=== PATIENT | female | born 1940 | race Hispanic/Latino ===

== ENCOUNTER 2017-10-05 15:24 | Emergency (ER) | payer OTHER, MEDICARE ==
[~2017-10-05 15:24] MED LIST: ATOR40TA71 PO; BUSP15 PO; CALC1TAB2 PO; CLOP75TA14 PO; DULO60CA63 PO; ERGO400C PO; FERR325T29 PO; FLUT1AER IH; FURO-151 PO; INSU100C14; INSU100I15 SQ; INSU100V12 SQ; IPRA3AMP4 IH; LOSA25TA21 PO; MIRA50TA PO; POTA-81 PO; PRAM1TAB3 PO; PRED10TA3 PO; SULF1TAB42 PO; nebulizer tubing
[2017-10-05 16:25] LABS: BASOPHILS % (AUTO) 0.5 % (0.0-5.0); EOSINOPHILS % (AUTO) 1.9 % (0.0-8.0); LYMPHOCYTES % (AUTO) 26.1 % (21.0-51.0); MEAN CORPUSCULAR HEMOGLOBIN 29.7 pg (27.0-33.0); MEAN CORPUSCULAR HGB CONC 33.6 g/dL (32.0-36.0); MEAN CORPUSCULAR VOLUME 88.4 fL (79-99); MONOCYTES % (AUTO) 6.9 % (3.0-13.0); NEUTROPHILS % (AUTO) 64.6 % (40.0-77.0); PLATELET COUNT (AUTO) 215 K/uL (130-400); RED BLOOD CELL COUNT(AUTO) 4.52 MIL/uL (4.00-5.50); RED CELL DISTRIBUTION WIDTH 13.4 % (11.0-15.5); WHITE BLOOD COUNT (AUTO) 5.8 K/uL (4.8-10.8)
[2017-10-05 18:27] LABS: APPEARANCE,URINE Clear (CLEAR); BILIRUBIN,URINE Negative (NEGATIVE); COLOR,URINE Yellow (YELLOW); GLUCOSE, URINE (UA) Negative (NEGATIVE); KETONES,URINE Negative (NEGATIVE); LEUKOCYTE ESTERASE ,URINE Negative (NEGATIVE); NITRATE,URINE Negative (NEGATIVE); OCCULT BLOOD,URINE Negative (NEGATIVE); PROTEIN,URINE POS 1+ (NEGATIVE); UROBILINOGEN,URINE 0.2 mg/dL (0.2-1.0)
[2017-10-05 18:39] LABS: BACTERIA,URINE None Seen /HPF (None Seen); MUCUS,URINE Few LPF (None Seen); RBC,URINE None Seen /HPF (0-1); SQUAMOUS EPITHELIAL CELL,UR 0-2 /LPF (0-2); WBC,URINE None Seen /HPF (0-1)
[2017-10-05] MEDS ORDERED: SODIUM CHLORIDE 0.9% 1000ML 1,000 ML IV ONE (18:41)
[2017-10-05] MEDS ORDERED: MECLIZINE HCL 25 MG TABLET ONE (20:53)
== END 2017-10-05 20:58 | disposition home or self-care (01) ==
LOC: EDH 15:24
DX: R42 Dizziness and giddiness (principal); I10 Essential (primary) hypertension; K21.9 Gastro-esophageal reflux disease without esophagitis; G89.29 Other chronic pain; M54.9 Dorsalgia, unspecified; J44.9 Chronic obstructive pulmonary disease, unspecified; Z86.73 Personal history of transient ischemic attack (TIA), and cerebral infarction without residual deficits; Z90.49 Acquired absence of other specified parts of digestive tract; Z87.891 Personal history of nicotine dependence; Z91.018 Allergy to other foods
CPT/HCPCS: 36415; 70250; 70551; 71045; 80048; 81001; 84484; 85025; 93005; 96360; 99285; J7030

== ENCOUNTER 2017-10-31 12:22 | Emergency (ER) | payer OTHER, MEDICARE ==
[~2017-10-31] VITALS: Ht 162.6 cm; Wt 99.8 kg
[2017-10-31 13:28] LABS: BASOPHILS % (AUTO) 0.3 % (0.0-5.0); EOSINOPHILS % (AUTO) 2.7 % (0.0-8.0); HEMATOCRIT 44.2 % (36-48); LYMPHOCYTES % (AUTO) 27.8 % (21.0-51.0); MEAN CORPUSCULAR HEMOGLOBIN 29.6 pg (27.0-33.0); MEAN CORPUSCULAR HGB CONC 33.4 g/dL (32.0-36.0); MEAN CORPUSCULAR VOLUME 88.6 fL (79-99); MONOCYTES % (AUTO) 4.9 % (3.0-13.0); NEUTROPHILS % (AUTO) 64.3 % (40.0-77.0); NUCLEATED RED BLOOD CELLS 0.1 % (0.0-0.19); PLATELET COUNT (AUTO) 202 K/uL (130-400); RED BLOOD CELL COUNT(AUTO) 4.99 MIL/uL (4.00-5.50); RED CELL DISTRIBUTION WIDTH 13.6 % (11.0-15.5)
[2017-10-31] MEDS ORDERED: ONDANSETRON HCL 4 MG/2 ML VIAL ONE (13:34)
[2017-10-31 13:36] LABS: APPEARANCE,URINE Clear (CLEAR); BILIRUBIN,URINE Negative (NEGATIVE); COLOR,URINE Yellow (YELLOW); GLUCOSE, URINE (UA) Negative (NEGATIVE); KETONES,URINE Negative (NEGATIVE); LEUKOCYTE ESTERASE ,URINE Negative (NEGATIVE); NITRATE,URINE Negative (NEGATIVE); OCCULT BLOOD,URINE Negative (NEGATIVE); PH,URINE 5.5 (5.0-8.0); PROTEIN,URINE POS 1+ (NEGATIVE); UROBILINOGEN,URINE 0.2 mg/dL (0.2-1.0)
[2017-10-31 13:38] LABS: BACTERIA,URINE Rare /HPF (None Seen); CREATININE 0.9 mg/dL (0.5-1.5); POTASSIUM 3.9 mmol/L (3.5-5.1); RBC,URINE 0-1 /HPF (0-1); SQUAMOUS EPITHELIAL CELL,UR Rare /LPF (0-2); WBC,URINE 0-1 /HPF (0-1)
[2017-10-31 13:41] LABS: INR 0.95 (0.85-1.15); PARTIAL THROMBOPLASTIN TIME 26.4 SEC (26.3-35.5)
[2017-10-31 13:43] LABS: ALBUMIN 3.6 g/dL (3.5-5.0); BILIRUBIN,TOTAL 0.5 mg/dL (0.2-1.0); TOTAL PROTEIN, SERUM 7.8 g/dL (6.0-8.3)
[2017-10-31] MEDS ORDERED: HYDROCODONE/ACETAMINOPHEN 7.5/325 MG 15 ML UDCUP PO SCH (16:00)
[2017-10-31] MEDS ORDERED: HYDROCODONE/ACETAMINOPHEN 7.5/325 MG 15 ML UDCUP ONE (16:44)
== END 2017-10-31 18:34 | disposition home or self-care (01) ==
LOC: EDH 12:22
DX: G89.29 Other chronic pain (principal); M54.9 Dorsalgia, unspecified; R51 Headache; I10 Essential (primary) hypertension; J44.9 Chronic obstructive pulmonary disease, unspecified; K21.9 Gastro-esophageal reflux disease without esophagitis; Z86.73 Personal history of transient ischemic attack (TIA), and cerebral infarction without residual deficits; Z91.018 Allergy to other foods
CPT/HCPCS: 36415; 70450; 70551; 71045; 80053; 81001; 84484; 85025; 85610; 85730; 87804 ×2; 93005; 94761; 96374; 99285; J2405

== ENCOUNTER → 2017-11-20 | Outpatient (CLI) | payer OTHER, MEDICARE | END | disposition home or self-care (01) | LOC: SHCH 09:54 | PROVIDERS: ATTEND Internal Medicine Cardiovascular Disease | DX: G45.9 Transient cerebral ischemic attack, unspecified (principal) | CPT/HCPCS: 93880 ==

== ENCOUNTER → 2018-10-07 | Outpatient (CLI) | payer OTHER, MEDICARE ==
[~2018-10-07] MED LIST changes: +IPRA3AMP24 IH; -IPRA3AMP4 IH; -LOSA25TA21 PO; +LOSA25TA41 PO
== END | disposition home or self-care (01) ==
LOC: RAH 09:05
PROVIDERS: ATTEND Internal Medicine
DX: M47.816 Spondylosis without myelopathy or radiculopathy, lumbar region (principal); J30.9 Allergic rhinitis, unspecified; M85.88 Other specified disorders of bone density and structure, other site; Z90.49 Acquired absence of other specified parts of digestive tract
CPT/HCPCS: 72100

== ENCOUNTER 2018-12-17 12:16 | Emergency (ER) | payer OTHER, MEDICARE ==
[2018-12-17 12:43] LABS: BASOPHILS % (AUTO) 0.6 % (0.0-5.0); EOSINOPHILS % (AUTO) 1.3 % (0.0-8.0); HEMATOCRIT 43.6 % (36-48); LYMPHOCYTES % (AUTO) 26.2 % (21.0-51.0); MEAN CORPUSCULAR HEMOGLOBIN 30.1 pg (27.0-33.0); MEAN CORPUSCULAR HGB CONC 33.7 g/dL (32.0-36.0); MEAN CORPUSCULAR VOLUME 89.1 fL (79-99); MONOCYTES % (AUTO) 7.1 % (3.0-13.0); NEUTROPHILS % (AUTO) 64.8 % (40.0-77.0); NUCLEATED RED BLOOD CELLS 0.1 % (0.0-0.19); PLATELET COUNT (AUTO) 206 K/uL (130-400); RED CELL DISTRIBUTION WIDTH 13.5 % (11.0-15.5); WHITE BLOOD COUNT (AUTO) 6.3 K/uL (4.8-10.8)
[2018-12-17 12:52] LABS: POTASSIUM 4.8 mmol/L (3.5-5.1)
[2018-12-17 12:57] LABS: ALBUMIN 3.8 g/dL (3.5-5.0); BILIRUBIN,TOTAL 0.3 mg/dL (0.2-1.0); TOTAL PROTEIN, SERUM 7.5 g/dL (6.0-8.3)
[2018-12-17] MEDS ORDERED: IPRATROPIUM/ALBUTEROL SULFATE 3 ML SOLUTION IH ONE (13:02)
== END 2018-12-17 13:26 | disposition home or self-care (01) ==
LOC: EDH 12:16
DX: F41.1 Generalized anxiety disorder (principal); J44.1 Chronic obstructive pulmonary disease with (acute) exacerbation; K21.9 Gastro-esophageal reflux disease without esophagitis; R07.89 Other chest pain; I10 Essential (primary) hypertension; E78.5 Hyperlipidemia, unspecified; Z90.49 Acquired absence of other specified parts of digestive tract; Z86.73 Personal history of transient ischemic attack (TIA), and cerebral infarction without residual deficits; Z90.710 Acquired absence of both cervix and uterus; Z87.891 Personal history of nicotine dependence; Z88.8 Allergy status to other drugs, medicaments and biological substances; Z91.018 Allergy to other foods; Z79.899 Other long term (current) drug therapy
CPT/HCPCS: 36415; 80053; 84484; 85025; 93005; 94640

== ENCOUNTER → 2019-03-16 | Outpatient (CLI) | payer OTHER, MEDICARE | END | disposition home or self-care (01) | LOC: RAH 12:37 | PROVIDERS: ATTEND Internal Medicine | DX: R06.00 Dyspnea, unspecified (principal); R05 Cough | CPT/HCPCS: 71046 ==

== ENCOUNTER → 2019-05-14 | Outpatient (CLI) | payer OTHER, MEDICARE ==
[~2019-05-14] MED LIST changes: -DULO60CA63 PO; +DULO60CA64 PO
== END | disposition home or self-care (01) ==
LOC: RAH 14:47
PROVIDERS: ATTEND Internal Medicine
DX: I82.812 Embolism and thrombosis of superficial veins of left lower extremity (principal)
CPT/HCPCS: 93971

== ENCOUNTER 2019-06-29 13:40 | Observation (INO) | payer OTHER, MEDICARE ==
[~2019-06-29] VITALS: Ht 165.1 cm; Wt 102.1 kg
[2019-06-29 15:26] LABS: EOSINOPHILS % (AUTO) 1.3 % (0.0-8.0); HEMATOCRIT 43.6 % (36-48); LYMPHOCYTES % (AUTO) 23.6 % (21.0-51.0); MEAN CORPUSCULAR HEMOGLOBIN 30.6 pg (27.0-33.0); MEAN CORPUSCULAR HGB CONC 33.8 g/dL (32.0-36.0); MEAN CORPUSCULAR VOLUME 90.7 fL (79-99); MONOCYTES % (AUTO) 6.4 % (3.0-13.0); NEUTROPHILS % (AUTO) 67.7 % (40.0-77.0); PLATELET COUNT (AUTO) 192 K/uL (130-400); RED BLOOD CELL COUNT(AUTO) 4.81 MIL/uL (4.00-5.50); RED CELL DISTRIBUTION WIDTH 13.4 % (11.0-15.5)
[2019-06-29 15:34] LABS: CREATININE 1.3 mg/dL (0.5-1.5)
[2019-06-29 15:35] LABS: INR 0.95 (0.85-1.15); PARTIAL THROMBOPLASTIN TIME 24.9 SEC (26.3-35.5)
[2019-06-29 15:39] LABS: ALBUMIN 3.4 g/dL (3.5-5.0); BILIRUBIN,TOTAL 0.4 mg/dL (0.2-1.0)
[2019-06-29] MEDS ORDERED: SODIUM CHLORIDE 0.9% 1000ML 1,000 ML IV ONE (18:17)
[2019-06-29 18:19] LABS: APPEARANCE,URINE Cloudy (CLEAR); BILIRUBIN,URINE Negative (NEGATIVE); COLOR,URINE Dark Yellow (YELLOW); GLUCOSE, URINE (UA) Negative (NEGATIVE); KETONES,URINE Trace mg/dL (NEGATIVE); LEUKOCYTE ESTERASE ,URINE Moderate (NEGATIVE); NITRATE,URINE Negative (NEGATIVE); OCCULT BLOOD,URINE Negative (NEGATIVE); PROTEIN,URINE POS 2+ mg/dL (NEGATIVE); UROBILINOGEN,URINE 0.2 mg/dL (0.2-1.0)
[2019-06-29 18:37] LABS: BACTERIA,URINE Moderate /HPF (None Seen); MUCUS,URINE Few LPF (None Seen)
[2019-06-29] MEDS ORDERED: GLUCAGON 1MG KIT 1 MG ML IM PRN ×2 (20:00→22:30)
[2019-06-29] MEDS ORDERED: SODIUM CHLORIDE 0.9% 1000ML 1,000 ML IV SCH (20:00)
[2019-06-29] MEDS ORDERED: DEXTROSE 50%-WATER 50 ML DISP.SYRIN IV PRN ×2 (20:00→22:30)
[2019-06-29] MEDS ORDERED: LEVOFLOXACIN 500 MG/D5W 100 ML 100 ML ONE (20:26)
[2019-06-29 22:06] LABS: OCCULT BLOOD STOOL SINGLE ONLY POSITIVE (NEGATIVE)
[2019-06-29] MEDS ORDERED: MAG HYDROX/AL HYDROX/SIMETH ES 30 ML SUSP UDCUP PO PRN (22:30)
[2019-06-29] MEDS ORDERED: DIPHENHYDRAMINE HCL 25 MG CAPSULE PO PRN (22:30)
[2019-06-29] MEDS ORDERED: POTASSIUM CHLORIDE 20 MEQ ERTAB PO PRN (22:30)
[2019-06-29] MEDS ORDERED: ACETAMINOPHEN 325 MG TAB PO PRN ×2 (22:30)
[2019-06-29] MEDS ORDERED: ONDANSETRON HCL 4 MG/2 ML VIAL IV PRN (22:30)
[2019-06-29] MEDS ORDERED: POTASSIUM CHLORIDE 10% ELIXIR 20 MEQ/15 ML UDCUP PO PRN (22:30)
[2019-06-29] MEDS ORDERED: POTASSIUM CHLORIDE 20MEQ/100ML 100 ML IV PRN (22:30)
[2019-06-29] MEDS ORDERED: DiphenhydrAMINE HCL 50 MG/ML VIAL IV PRN (22:30)
[2019-06-29] MEDS ORDERED: LIDOCAINE HCL-MPF 1% 2ML VIAL IV PRN (22:30)
[2019-06-29] MEDS ORDERED: ALBUTEROL SULFATE 0.083% 2.5 MG/3 ML INH IH PRN (22:30)
[2019-06-30] MEDS ORDERED: DiphenhydrAMINE HCL 50 MG/ML VIAL ONE (01:18)
[2019-06-30] MEDS ORDERED: DIPHENHYDRAMINE HCL 25 MG CAPSULE ONE (01:20)
[2019-06-30] MEDS ORDERED: INSU100V12 SQ (08:38)
[2019-06-30] MEDS ORDERED: ATOR-2 PO (08:38)
[2019-06-30] MEDS ORDERED: DULO60CA64 PO (08:38)
[2019-06-30] MEDS ORDERED: BUSP15 PO (08:38)
[2019-06-30] MEDS ORDERED: IPRA0.2S54 IH (08:44)
[2019-06-30] MEDS ORDERED: COLE5PAC3 PO ×2 (08:44→08:48)
[2019-06-30] MEDS ORDERED: AEC81 PO (08:44)
[2019-06-30] MEDS ORDERED: PANT40TA25 PO (08:44)
[2019-06-30] MEDS ORDERED: METO50TA18 PO (08:44)
[2019-06-30] MEDS ORDERED: ACET1TAB12 PO (08:44)
[2019-06-30] MEDS ORDERED: FLUT1BLS3 IH (08:44)
[2019-06-30] MEDS ORDERED: ALBU2.5V2 IH (08:44)
[2019-06-30] MEDS ORDERED: ALBU8.5H8 IH (08:44)
[2019-06-30] MEDS ORDERED: CRAN500T2 PO (08:48)
[2019-06-30] MEDS ORDERED: CPAP NASAL (08:48)
[2019-06-30] MEDS ORDERED: LEVO500T2 PO (08:52)
[2019-06-30] MEDS ORDERED: PRED10TA23 PO (08:53)
[2019-06-30] MEDS ORDERED: CLOPIDOGREL BISULFATE 75 MG TAB PO SCH (09:00)
[2019-06-30] MEDS ORDERED: LOPERAMIDE HCL 2 MG CAP PO PRN (09:00)
[2019-06-30] MEDS: FAMOTIDINE 20MG TAB 20 MG TAB PO SCH ×2 (09:00→21:01)
[2019-06-30] MEDS ORDERED: METHYLPREDNISOLONE SOD SUCC 125MG/2ML VIAL IM SCH (09:00)
[2019-06-30] MEDS ORDERED: ENOXAPARIN SODIUM 30 MG/0.3 ML SQ SCH (09:00)
[2019-06-30] MEDS ORDERED: FLUTICASONE/VILANTEROL 1 EACH AER.POW.BA IH SCH (09:00)
[2019-06-30] MEDS ORDERED: INSULIN GLARGINE 100 UNITS/ML 10 ML VIAL SQ ONE (09:00)
[2019-06-30] MEDS ORDERED: FERROUS SULFATE 325 MG TABLET.DR PO SCH (09:00)
[2019-06-30] MEDS ORDERED: POTASSIUM CHLORIDE 20 MEQ ERTAB PO SCH (09:00)
[2019-06-30] MEDS ORDERED: ALBUTEROL SULFATE 0.083% 2.5 MG/3 ML INH IH SCH (10:00)
[2019-06-30] MEDS ORDERED: ALBUTEROL SULFATE 0.083% 2.5 MG/3 ML INH IH ONE (10:42)
--- NOTE | 2019-06-30 10:50 | NUR ---
DCP: HOME Sw met with pt who states her son Sarbjit Mancilla [phone] lives with her and assists as needed. Pt is independent of ADLs, has walker, w/c,nebulizer, O2 thru [employer], shower chair and hospital bed, no in home care services. Manjeet Garcia is PCP and pt uses [facility]. Plan is home at me Addendum: 06/30/19 at 1053 by JEAN-PIERRE DODD SS Amended: Links added.
[2019-06-30 11:05] VITALS: BP 154/67
--- NOTE | 2019-06-30 12:00 | NUR ---
ADMISSION PER SERVICES OF FROM ER. PT ON 2 LITER NC . REVIEW ORDERS AND ADMISSION CARE. CALL LIGHT IN REACH. .
[2019-06-30 16:00] VITALS: BP 178/76
[2019-06-30] MEDS: INSULIN R PO SS1 SQ SCH ×3 (16:30→21:03)
[2019-06-30] MEDS: METHYLPREDNISOLONE SOD SUCC 125MG/2ML VIAL IVP SCH ×2 (16:32→21:02)
[2019-06-30 19:00] VITALS: BP 162/75
--- NOTE | 2019-06-30 19:00 | NUR ---
DR. CHAMORRO HERE AND REVIEW WITH PT OF DISCHARGE ORDERS TO FOLLOW .
[2019-06-30] MEDS: LEVOFLOXACIN 500 MG/D5W 100 ML 100 ML IV SCH ×2 (20:00→21:01)
[2019-06-30] MEDS ORDERED: ATORVASTATIN CALCIUM 40 MG TABLET PO SCH (21:00)
[2019-06-30] MEDS ORDERED: DULOXETINE HCL 30 MG CAP PO SCH (21:00)
[2019-06-30 22:41] VITALS: BP 158/82
--- NOTE | 2019-06-30 23:30 | NUR ---
Discharge instructions Discharge instructions were given to patient and son o, follow up, medication, new medications, and medications to stop. patient and family understood all instructions.
== END 2019-06-30 23:46 | disposition home or self-care (01) ==
LOC: EDH 13:40 → EDHIP 19:40 → 4CH 06-30 11:36
PROVIDERS: ADMIT Internal Medicine; ATTEND Internal Medicine
DX: E86.0 Dehydration (principal); R55 Syncope and collapse; R00.1 Bradycardia, unspecified; E78.2 Mixed hyperlipidemia; I12.9 Hypertensive chronic kidney disease with stage 1 through stage 4 chronic kidney disease, or unspecified chronic kidney disease; N18.2 Chronic kidney disease, stage 2 (mild); E11.22 Type 2 diabetes mellitus with diabetic chronic kidney disease; E11.42 Type 2 diabetes mellitus with diabetic polyneuropathy; E78.5 Hyperlipidemia, unspecified; J10.1 Influenza due to other identified influenza virus with other respiratory manifestations; J44.9 Chronic obstructive pulmonary disease, unspecified; M19.90 Unspecified osteoarthritis, unspecified site; R32 Unspecified urinary incontinence; K21.9 Gastro-esophageal reflux disease without esophagitis; G25.81 Restless legs syndrome; G47.33 Obstructive sleep apnea (adult) (pediatric); G89.29 Other chronic pain; M54.5 Low back pain; F41.9 Anxiety disorder, unspecified; Z86.73 Personal history of transient ischemic attack (TIA), and cerebral infarction without residual deficits; Z87.891 Personal history of nicotine dependence; Z79.02 Long term (current) use of antithrombotics/antiplatelets; Z79.4 Long term (current) use of insulin; Z79.51 Long term (current) use of inhaled steroids; Z79.82 Long term (current) use of aspirin; Z79.899 Other long term (current) drug therapy; Z80.1 Family history of malignant neoplasm of trachea, bronchus and lung; Z82.0 Family history of epilepsy and other diseases of the nervous system; Z82.49 Family history of ischemic heart disease and other diseases of the circulatory system; Z82.5 Family history of asthma and other chronic lower respiratory diseases; Z83.3 Family history of diabetes mellitus
CPT/HCPCS: 36415; 71045; 80053; 81001; 82270; 82550; 82948 ×4; 83605; 83630; 83880; 84484; 85025; 85610; 85730; 87040 ×2; 87046; 87324; 87804 ×2; 93005; 94640; 94664; 96365; 96372; 96375; 96376; 99284; G0378 ×25; J1200; J1815; J1956 ×2; J2930 ×2; J7030; Q0163

== ENCOUNTER → 2019-07-31 | Outpatient (CLI) | payer OTHER, MEDICARE ==
[~2019-07-31] MED LIST changes: +ACET1TAB12 PO; +AEC81 PO; +ALBU2.5V2 IH; +ALBU8.5H8 IH; +ATOR-2 PO; -ATOR40TA71 PO; -CLOP75TA14 PO; +COLE5PAC3 PO; +CPAP NASAL; +CRAN500T2 PO; -ERGO400C PO; -FERR325T29 PO; -FLUT1AER IH; +FLUT1BLS3 IH; -FURO-151 PO; -INSU100C14; +IPRA0.2S54 IH; -IPRA3AMP24 IH; +LEVO500T2 PO; -MIRA50TA PO; +PANT40TA25 PO; -POTA-81 PO; +PRED10TA23 PO; -PRED10TA3 PO; -SULF1TAB42 PO; -nebulizer tubing
== END | disposition home or self-care (01) ==
LOC: RAH 11:13
PROVIDERS: ATTEND Internal Medicine
DX: M17.12 Unilateral primary osteoarthritis, left knee (principal); F32.5 Major depressive disorder, single episode, in full remission; I12.9 Hypertensive chronic kidney disease with stage 1 through stage 4 chronic kidney disease, or unspecified chronic kidney disease; E11.22 Type 2 diabetes mellitus with diabetic chronic kidney disease; N18.2 Chronic kidney disease, stage 2 (mild); J44.9 Chronic obstructive pulmonary disease, unspecified; E78.5 Hyperlipidemia, unspecified; K21.9 Gastro-esophageal reflux disease without esophagitis; E11.42 Type 2 diabetes mellitus with diabetic polyneuropathy; Z91.018 Allergy to other foods; Z87.891 Personal history of nicotine dependence
CPT/HCPCS: 73560

== ENCOUNTER → 2020-02-24 | Outpatient (CLI) | payer OTHER, MEDICARE ==
[~2020-02-24] MED LIST changes: -PANT40TA25 PO; +PANT40TA54 PO
== END | disposition home or self-care (01) ==
LOC: RAH 12:40
PROVIDERS: ATTEND Internal Medicine
DX: I82.491 Acute embolism and thrombosis of other specified deep vein of right lower extremity (principal); R60.0 Localized edema
CPT/HCPCS: 93970

== ENCOUNTER 2022-08-12 21:17 | Observation (INO) | payer OTHER, MEDICARE ==
[~2022-08-12] VITALS: Ht 172.7 cm; Wt 85.3 kg
[~2022-08-12 21:17] MED LIST changes: -CRAN500T2 PO; +CRAN500T4 PO
[2022-08-12 22:07] LABS: BASOPHILS % (AUTO) 0.4 % (0.0-5.0); EOSINOPHILS % (AUTO) 0.1 % (0.0-8.0); HEMATOCRIT 46.6 % (36-48); LYMPHOCYTES % (AUTO) 10.4 % (21.0-51.0); MEAN CORPUSCULAR HEMOGLOBIN 29.2 pg (27.0-33.0); MEAN CORPUSCULAR HGB CONC 33.5 g/dL (32.0-36.0); MEAN CORPUSCULAR VOLUME 87.3 fL (79-99); MONOCYTES % (AUTO) 2.6 % (3.0-13.0); NEUTROPHILS % (AUTO) 86.1 % (40.0-77.0); PLATELET COUNT (AUTO) 235 K/uL (130-400); RED BLOOD CELL COUNT(AUTO) 5.34 MIL/uL (4.00-5.50); WHITE BLOOD COUNT (AUTO) 10.2 K/uL (4.8-10.8)
[2022-08-12 22:09] LABS: APPEARANCE,URINE CLEAR (CLEAR); BILIRUBIN,URINE NEGATIVE (NEGATIVE); COLOR,URINE LIGHT-YELLOW (YELLOW); GLUCOSE, URINE (UA) 70 mg/dL (NEGATIVE); KETONES,URINE 5 mg/dL (NEGATIVE); LEUKOCYTE ESTERASE ,URINE NEGATIVE Leu/uL (NEGATIVE); NITRATE,URINE NEGATIVE (NEGATIVE); OCCULT BLOOD,URINE NEGATIVE (NEGATIVE); PH,URINE 6.5 (5.0-8.0); PROTEIN,URINE 100 mg/dL (NEGATIVE); UROBILINOGEN,URINE 0.2 mg/dL (0.2-1.0)
[2022-08-12 22:12] LABS: BACTERIA,URINE RARE /HPF (None Seen); MUCUS,URINE RARE LPF (None Seen); RBC,URINE 0-1 /HPF (0-1); SQUAMOUS EPITHELIAL CELL,UR RARE /HPF (0-2)
[2022-08-12 22:25] LABS: CREATININE 1.2 mg/dL (0.5-1.5); POTASSIUM 4.6 mmol/L (3.5-5.1)
[2022-08-12 22:29] LABS: ALBUMIN 3.8 g/dL (3.5-5.0); TOTAL PROTEIN, SERUM 8.5 g/dL (6.0-8.3)
[2022-08-12 22:33] LABS: B-TYPE NATRIURETIC PEPTIDE 73 pg/mL (0-100)
[2022-08-12] MEDS ORDERED: ZOSYN 3.375GM+NS 50ML 50 ML ONE (22:42)
[2022-08-12] MEDS ORDERED: 0.9%NACL 1000ML 1,572 ML IV ONE (23:00)
[2022-08-12] MEDS ORDERED: ZOSYN 3.375GM +NS 50ML IV ONE (23:00)
[2022-08-12] MEDS ORDERED: MORPHINE 4 MG SYG IVP ONE (23:30)
[2022-08-13] MEDS ORDERED: ACETAMINOPHEN 325 MG TAB PO PRN ×3 (01:30→08:30)
[2022-08-13] MEDS ORDERED: ONDANSETRON 4MG INJ IVP PRN (01:30)
[2022-08-13] MEDS ORDERED: INSULIN HUMULIN R 100 UNIT/ML 3ML SQ PRN (01:30)
[2022-08-13] MEDS: 0.9%NACL 1000ML 1,000 ML IV SCH ×4 (01:59→20:05)
[2022-08-13 02:20] VITALS: BP 167/87
[2022-08-13 02:45] VITALS: BP 167/87
[2022-08-13] MEDS ORDERED: ACET-3540 PO (03:07)
[2022-08-13] MEDS ORDERED: MELA3CAP2 PO (03:07)
[2022-08-13 07:40] VITALS: BP 120/68
[2022-08-13] MEDS ORDERED: FLUCONAZOLE 100 MG TAB PO SCH (08:30)
[2022-08-13] MEDS ORDERED: LIDOCAINE HCL-MPF 1% 2ML VIAL IV PRN (08:30)
[2022-08-13] MEDS ORDERED: ALBUTEROL 0.083% 2.5 MG/3 ML INH IH PRN ×2 (08:30→17:00)
[2022-08-13] MEDS ORDERED: POTASSIUM CHLORIDE 10% ELIXIR 20 MEQ/15 ML UDCUP PO PRN (08:30)
[2022-08-13] MEDS ORDERED: GUAIFENESIN-DM 200/20 MG 10 ML PO PRN (08:30)
[2022-08-13] MEDS ORDERED: MAG/ALUM/SIMETH 30 ML UDCUP PO PRN (08:30)
[2022-08-13] MEDS ORDERED: ONDANSETRON 4MG INJ IV PRN (08:30)
[2022-08-13] MEDS ORDERED: POTASSIUM CHLORIDE 20MEQ/100ML 100 ML IV PRN (08:30)
[2022-08-13] MEDS ORDERED: BISACODYL 10 MG SUPP.RECT RC PRN (08:30)
[2022-08-13] MEDS ORDERED: DIPHENHYDRAMINE HCL 25 MG CAPSULE PO PRN (08:30)
[2022-08-13] MEDS ORDERED: LACTULOSE 20 GM/30 ML UDCUP PO PRN (08:30)
[2022-08-13] MEDS ORDERED: DEXTROSE 50%-WATER 50 ML DISP.SYRIN IV PRN (08:30)
[2022-08-13] MEDS ORDERED: GLUCAGON 1MG KIT 1 MG ML IM PRN (08:30)
[2022-08-13] MEDS ORDERED: ENOXAPARIN SODIUM 30 MG/0.3 ML SQ SCH (09:00)
[2022-08-13] MEDS: CLOTRIMAZOLE 30 GM CREAM.GM. TP SCH ×3 (09:00→21:48)
[2022-08-13] MEDS ORDERED: BUSP15TA3 PO (10:04)
[2022-08-13] MEDS ORDERED: LOSA25TA41 PO (10:04)
[2022-08-13] MEDS ORDERED: FLUT1BLS3 IH (10:04)
[2022-08-13] MEDS ORDERED: PRAM1TAB7 PO (10:04)
[2022-08-13] MEDS ORDERED: INSU200I SQ (10:04)
[2022-08-13] MEDS ORDERED: DULO60CA64 PO (10:04)
[2022-08-13] MEDS ORDERED: ATOR-2 PO (10:04)
[2022-08-13] MEDS ORDERED: MIRT45TA83 PO (10:04)
[2022-08-13] MEDS ORDERED: AMLO2.5T5 PO (10:04)
[2022-08-13] MEDS ORDERED: PANT40TA54 PO (10:04)
[2022-08-13] MEDS ORDERED: INSU100I21 SQ (10:04)
[2022-08-13] MEDS ORDERED: ALBU18HF7 IH (10:04)
[2022-08-13] MEDS ORDERED: COLE5PAC PO (10:04)
[2022-08-13] MEDS ORDERED: RIVA10TA PO (10:04)
[2022-08-13] MEDS ORDERED: MEMA5TAB7 PO (10:04)
[2022-08-13] MEDS ORDERED: ALBU2.5V2 IH (10:04)
[2022-08-13] MEDS ORDERED: CPAP NS (10:06)
[2022-08-13] MEDS: POLYETHYLENE GLYCOL 3350 17 GM POWD.PACK PO SCH (10:49)
[2022-08-13 11:00] VITALS: BP 140/64
[2022-08-13] MEDS ORDERED: BISACODYL 10 MG SUPP.RECT RC SCH (14:30)
[2022-08-13] MEDS ORDERED: CEFTRIAXONE 1G VIAL IVP SCH (14:30)
[2022-08-13 16:00] VITALS: BP 175/74
[2022-08-13 20:00] VITALS: BP 120/63
[2022-08-13] MEDS ORDERED: [UNRECOGNIZED DRUG - OTHER] NS SCH (21:00)
[2022-08-14] VITALS (7 sets, daily range): BP systolic 143–206; BP diastolic 57–94
[2022-08-14 04:39] LABS: BASOPHILS % (AUTO) 0.8 % (0.0-5.0); EOSINOPHILS % (AUTO) 2.8 % (0.0-8.0); HEMATOCRIT 36.7 % (36-48); LYMPHOCYTES % (AUTO) 30.2 % (21.0-51.0); MEAN CORPUSCULAR HGB CONC 32.4 g/dL (32.0-36.0); MEAN CORPUSCULAR VOLUME 89.3 fL (79-99); MONOCYTES % (AUTO) 7.1 % (3.0-13.0); NEUTROPHILS % (AUTO) 58.7 % (40.0-77.0); PLATELET COUNT (AUTO) 196 K/uL (130-400); RED BLOOD CELL COUNT(AUTO) 4.11 MIL/uL (4.00-5.50); RED CELL DISTRIBUTION WIDTH 13.2 % (11.0-15.5); WHITE BLOOD COUNT (AUTO) 5.1 K/uL (4.8-10.8)
[2022-08-14 04:50] LABS: CREATININE 0.9 mg/dL (0.5-1.5); POTASSIUM 3.4 mmol/L (3.5-5.1)
[2022-08-14] MEDS: KCL 20 MEQ ERTAB PO PRN ×2 (04:54→08:44)
[2022-08-14] MEDS: DULOXETINE HCL 30 MG CAP PO SCH (08:40)
[2022-08-14] MEDS: MEMANTINE HCL 5 MG TABLET PO SCH (08:41)
[2022-08-14] MEDS: LOSARTAN 25 MG TABLET PO SCH (08:42)
[2022-08-14] MEDS: AMLODIPINE 2.5 MG TAB PO SCH (08:42)
[2022-08-14] MEDS: ATORVASTATIN 40 MG TABLET PO SCH (08:43)
[2022-08-14] MEDS: POLYETHYLENE GLYCOL 3350 17 GM POWD.PACK PO SCH (08:48)
[2022-08-14] MEDS: RIVAROXABAN 10 MG TABLET PO SCH (08:48)
[2022-08-14] MEDS: CLOTRIMAZOLE 30 GM CREAM.GM. TP SCH ×3 (09:00→22:28)
[2022-08-14] MEDS ORDERED: INSULIN GLARGINE 100 UNITS/ML 10 ML VIAL SQ SCH (21:00)
[2022-08-15] MEDS: LOSARTAN 25 MG TABLET PO SCH (03:49)
[2022-08-15] MEDS: AMLODIPINE 2.5 MG TAB PO SCH (03:50)
[2022-08-15 04:00] VITALS: BP 191/83
[2022-08-15 05:16] LABS: CREATININE 0.9 mg/dL (0.5-1.5); POTASSIUM 3.9 mmol/L (3.5-5.1)
[2022-08-15 06:00] VITALS: BP 189/75
[2022-08-15 08:00] VITALS: BP 195/91
[2022-08-15] MEDS ORDERED: AMLO-257 PO (08:59)
[2022-08-15] MEDS ORDERED: INSU3INS3 SQ (08:59)
[2022-08-15] MEDS ORDERED: PANT40TA54 PO (08:59)
[2022-08-15] MEDS ORDERED: LOSA50TA64 PO (08:59)
[2022-08-15] MEDS ORDERED: AMLODIPINE 5 MG TAB PO ONE (09:00)
[2022-08-15] MEDS ORDERED: CLONIDINE HCL 0.1 MG TABLET PO PRN (09:00)
[2022-08-15] MEDS ORDERED: LOSARTAN 25 MG TABLET PO SCH (09:00)
[2022-08-15] MEDS ORDERED: CLOT15CR23 TP (09:04)
[2022-08-15] MEDS ORDERED: POLY17PO4 PO (09:06)
[2022-08-15] MEDS ORDERED: FLUCONAZOLE 100 MG TAB PO SCH (09:30)
[2022-08-15] MEDS: MEMANTINE HCL 5 MG TABLET PO SCH (09:37)
[2022-08-15] MEDS: POLYETHYLENE GLYCOL 3350 17 GM POWD.PACK PO SCH (09:37)
[2022-08-15] MEDS: ATORVASTATIN 40 MG TABLET PO SCH (09:38)
[2022-08-15] MEDS: DULOXETINE HCL 30 MG CAP PO SCH (09:38)
[2022-08-15] MEDS: RIVAROXABAN 10 MG TABLET PO SCH (09:39)
[2022-08-15] MEDS: CLOTRIMAZOLE 30 GM CREAM.GM. TP SCH (09:46)
[2022-08-15 12:05] VITALS: BP 149/68
[2022-08-15] MEDS ORDERED: AMLODIPINE 5 MG TAB PO SCH (21:00)
[2022-08-15] MEDS ORDERED: PRAMIPEXOLE DI-HCL 0.25 MG TABLET PO SCH (21:00)
[2022-08-15] MEDS ORDERED: BUSPIRONE HCL 5 MG TABLET PO SCH (21:00)
== END 2022-08-15 13:00 ==
LOC: EDH 21:17 → EDHIP 08-13 01:23 → 3AH 08-13 02:41
PROVIDERS: ADMIT Internal Medicine; ATTEND Internal Medicine
DX: A41.9 Sepsis, unspecified organism (principal); Z20.822 Contact with and (suspected) exposure to COVID-19; R10.9 Unspecified abdominal pain; K59.00 Constipation, unspecified; E86.0 Dehydration; G93.41 Metabolic encephalopathy; B35.9 Dermatophytosis, unspecified; E87.6 Hypokalemia; J30.9 Allergic rhinitis, unspecified; E78.5 Hyperlipidemia, unspecified; J44.9 Chronic obstructive pulmonary disease, unspecified; F17.200 Nicotine dependence, unspecified, uncomplicated; F32.9 Major depressive disorder, single episode, unspecified; M48.8X6 Other specified spondylopathies, lumbar region; M47.9 Spondylosis, unspecified; K21.9 Gastro-esophageal reflux disease without esophagitis; G25.81 Restless legs syndrome; G47.30 Sleep apnea, unspecified; H26.9 Unspecified cataract; I13.10 Hypertensive heart and chronic kidney disease without heart failure, with stage 1 through stage 4 chronic kidney disease, or unspecified chronic kidney disease; N18.2 Chronic kidney disease, stage 2 (mild); E11.22 Type 2 diabetes mellitus with diabetic chronic kidney disease; E11.40 Type 2 diabetes mellitus with diabetic neuropathy, unspecified; E11.65 Type 2 diabetes mellitus with hyperglycemia; E66.01 Morbid (severe) obesity due to excess calories; F03.93 Unspecified dementia, unspecified severity, with mood disturbance; I69.354 Hemiplegia and hemiparesis following cerebral infarction affecting left non-dominant side; I70.0 Atherosclerosis of aorta; G95.9 Disease of spinal cord, unspecified; K82.8 Other specified diseases of gallbladder; D51.9 Vitamin B12 deficiency anemia, unspecified; F03.90 Unspecified dementia, unspecified severity, without behavioral disturbance, psychotic disturbance, mood disturbance, and anxiety; L03.90 Cellulitis, unspecified; Z66 Do not resuscitate; Z68.35 Body mass index [BMI] 35.0-35.9, adult; Z79.01 Long term (current) use of anticoagulants; Z79.4 Long term (current) use of insulin; Z79.82 Long term (current) use of aspirin; Z79.899 Other long term (current) drug therapy; Z90.49 Acquired absence of other specified parts of digestive tract; Z90.710 Acquired absence of both cervix and uterus; Z96.651 Presence of right artificial knee joint; Z98.890 Other specified postprocedural states
CPT/HCPCS: 96365; 96375 ×2; 99285; 82550; 84484; 80053; 83880; 85025 ×2; 87040 ×2; 87804 ×2; 83605 ×3; 81001; 36415 ×4; 87635; 71045; 70450; 74176; 93005; 84145; 96372 ×2; 96361; 96366; 82948 ×10; 97161; 97530 ×3; 94664; 80048 ×2; 97039 ×3; C9803; J2270; J2543; G0378 ×52; J7030; J1650; J0696